=== PATIENT | female | born 1975 | race Caucasian/White ===

== ENCOUNTER 2017-09-08 19:07 | Emergency (ER) | payer OTHER ==
[~2017-09-08] VITALS: Ht 162.6 cm; Wt 113.4 kg
[2017-09-08] MEDS ORDERED: TECFIDERA240 MG (19:30)
[2017-09-08] MEDS ORDERED: IRON18 MG (19:31)
[2017-09-08] MEDS ORDERED: GLYCOTROL CAPS1 EACH (19:31)
[2017-09-08] MEDS ORDERED: D3 DOTS2000 UNIT (19:31)
== END 2017-09-08 23:27 | disposition home or self-care (01) ==
LOC: ER 19:07
DX: J06.9 Acute upper respiratory infection, unspecified (principal); K52.89 Other specified noninfective gastroenteritis and colitis; J11.1 Influenza due to unidentified influenza virus with other respiratory manifestations